=== PATIENT | female | born 1990 | race Caucasian/White ===

== ENCOUNTER 2022-12-23 19:49 | Emergency (ER) | payer MEDICAID ==
[~2022-12-23] VITALS: Ht 157.5 cm; Wt 58.0 kg
[2022-12-23 20:23] VITALS: BP 117/80
== END 2022-12-23 23:30 | disposition left against medical advice (07) ==
LOC: ER 19:49
DX: Z53.21 Procedure and treatment not carried out due to patient leaving prior to being seen by health care provider (principal)
CPT/HCPCS: 99281